=== PATIENT | female | born 1965 | race Two or more races ===

== ENCOUNTER 2018-12-16 06:58 | Day surgery (SDC) | payer OTHER ==
[~2018-12-16] VITALS: Ht 154.9 cm; Wt 113.3 kg
[2018-12-16] VITALS (11 sets, daily range): BP systolic 105–135; BP diastolic 53–68; PULSE 86–99; RESP 14–18; Ht 154.9 cm; Wt 113.3 kg
--- NOTE | 2018-12-16 07:08 | HPN ---
Date/Time of Note Date/Time of Note DATE: 12/16/18 TIME: 07:08 Interval H&P Admission Note Pt. seen H&P reviewed: No system changes MACIE MORGAN MD Dec 16, 2018 07:08
[2018-12-16] MEDS ORDERED: ATOR40TA68 PO (07:57)
[2018-12-16] MEDS ORDERED: AMLO-147 PO (07:57)
[2018-12-16] MEDS ORDERED: PIOG15TA12 PO (07:58)
[2018-12-16] MEDS ORDERED: INSU100I33 SC (07:58)
[2018-12-16] MEDS ORDERED: LEVO137T26 PO (07:59)
[2018-12-16] MEDS ORDERED: ASPI81TA52 PO (07:59)
[2018-12-16] MEDS ORDERED: ESCI20TA PO (08:00)
[2018-12-16] MEDS ORDERED: DOCU250C68 PO (08:00)
[2018-12-16] MEDS ORDERED: GABA300C16 PO (08:00)
[2018-12-16] MEDS ORDERED: INSU100I12 SQ (08:01)
[2018-12-16] MEDS ORDERED: RANI150T5 PO (08:01)
[2018-12-16] MEDS ORDERED: LACTATED RINGER'S 1,000 ML IV SCH (08:30)
--- NOTE | 2018-12-16 08:50 | PREAC ---
Date/Time of Note Date/Time of Note DATE: 12/16/18 TIME: 08:49 Anesthesia Eval and Record Evaluation Time Pre-Procedure Interview DATE: 12/16/18 TIME: 08:49 Age 53 Sex female NPO: 8 hrs Preoperative diagnosis Gallstones Planned procedure Lap Gloria Past Medical History Past Medical History: Includes Cardio: HTN, Dyslipidemia Endo: Diabetes Pulm: Sleep Apnea Musculoskeletal: Osteoarthritis GI: Morbid obesity Heme: Anemia Surgery & Anesthesia Issues No known issue Meds Anticoagulation: No Beta Shaji within 24 hr: No Reason Beta Shaji not given: Pt. not on B-Shaji Reported Medications Insulin Lispro (Humalog Kwikpen U-100) 100 Unit/1 Ml Insuln.pen, 25 UNIT SQ AC A, EA ADMELOG 12/16/18 Ranitidine Hcl* (Ranitidine Hcl*) 150 Mg Tablet, 150 MG PO Q12, #60 TAB 12/16/18 Gabapentin* (Gabapentin*) 300 Mg Capsule, 300 MG PO TID, #90 CAP 12/16/18 Escitalopram Oxalate* (Lexapro*) 20 Mg Tablet, 20 MG PO DAILY, #30 TAB 12/16/18 Docusate Sodium* (Dok*) 250 Mg Capsule, 250 MG PO DAILY, #30 CAP 12/16/18 Aspirin (Low Dose Aspirin) 81 Mg Tablet.dr, 81 MG PO DAILY, #30 TAB 12/16/18 Levothyroxine Sodium* (Levoxyl*) 137 Mcg Tablet, 137 MCG PO BEFORE BREAKFAST, #30 TAB 12/16/18 Pioglitazone Hcl* (Actos*) 15 Mg Tablet, 15 MG PO DAILY, #30 TAB 12/16/18 Insulin Glargine,Hum.rec.anlog (Basaglar Kwikpen U-100) 100 Unit/1 Ml Insuln.pen, 70 UNIT SC QHS, EA 12/16/18 Atorvastatin* (Atorvastatin*) 40 Mg Tablet, 40 MG PO QHS, #30 TAB 12/16/18 Amlodipine Besylate* (Amlodipine Besylate*) 10 Mg Tablet, 10 MG PO DAILY, #30 TAB 12/16/18 Current Medications Lactated Ringer's 1,000 ml @ 30 mls/hr Q24H IV ; Start 12/16/18 at 08:30 Meds reviewed: Yes Allergies Coded Allergies: No Known Allergy (Unverified , 12/16/18) Allergies Reviewed: Yes Labs/Studies Labs Reviewed: Reviewed by anesthesiologist test: Negative Studies: ECG Pre-procedure Exam Last vitals Vital Signs Date Temp Pulse Resp B/P (MAP) Pulse Ox O2 O2 Flow FiO2 Time Delivery Rate 12/16/18 97.4 97 16 132/67 98 08:19 (88) Airway: Adequate mouth opening, Adequate thyromental dist Mallampati: Mallampati II Teeth: Normal Lung: Normal Heart: Normal ASA Physical Status ASA physical status: 3 Emergency: None Planned Anesthetic General/MAC: ETT Nerve block: TAP (bilateral) Pre-operative Attestations Prior to commencing anesthesia and surgery, the patient was re-evaluated, there was verification of: *The patient's identity *The results of appropriate recent lab work and preoperative vital signs *The above evaluation not changing prior to induction *Anesthetic plan, risk benefits, alternative and complications discussed with patient/family; questions answered; patient/family understands, accepts and wishes to proceed. FADUMO POTTS Dec 16, 2018 08:50
[2018-12-16] MEDS ORDERED: ALBUTEROL 0.083% (NEB) 2.5 MG/3 ML AMP HHN PRN (09:00)
[2018-12-16] MEDS ORDERED: DIPHENHYDRAMINE 50 MG INJ IV PRN (09:00)
[2018-12-16] MEDS ORDERED: MEPERIDINE 25 MG INJ IV PRN (09:00)
[2018-12-16] MEDS ORDERED: FENTAnyl 50 MCG/ML VIAL IV PRN ×3 (09:00)
[2018-12-16] MEDS ORDERED: METOCLOPRAMIDE 10 MG INJ IV PRN (09:00)
[2018-12-16] MEDS ORDERED: HYDROmorphONE 1 MG/5 ML IV SYRINGE IV PRN ×3 (09:00)
[2018-12-16] MEDS ORDERED: ONDANSETRON 4 MG INJ IV PRN ×2 (09:00→10:30)
[2018-12-16] MEDS ORDERED: SUCCINYLCHOLINE CHLORIDE 100 MG/5 ML SYG IV ONE ×2 (09:13→09:38)
[2018-12-16] MEDS ORDERED: ROCURONIUM 50 MG INJ ONE (09:13)
[2018-12-16] MEDS ORDERED: ROPIVACAINE 0.5 % 30 ML VIAL ONE (09:13)
[2018-12-16] MEDS ORDERED: FENTAnyl 50 MCG/ML VIAL ONE (09:13)
[2018-12-16] MEDS ORDERED: BUPIVACAINE 0.25% (MPF) 30 ML INJ ONE (09:32)
[2018-12-16] MEDS ORDERED: CEFAZOLIN 1 GM INJ ONE (09:38)
[2018-12-16] MEDS ORDERED: PROPOFOL 20 ML ONE (09:38)
[2018-12-16] MEDS ORDERED: LIDOCAINE 100 MG SYRINGE ONE (09:38)
[2018-12-16] MEDS ORDERED: SUGAMMADEX SODIUM 200 MG/2 ML VIAL IV ONE (10:03)
--- NOTE | 2018-12-16 10:17 | OPR ---
Date/Time of Note Date/Time of Note DATE: 12/16/18 TIME: 10:12 Operative Report Procedure Date: Dec 16, 2018 Preoperative Diagnosis Gallstones without obstruction Postoperative Diagnosis 1. Gallstones without obstruction 2. Granulomatous liver masses(Benign. Pathology pending) Operation/Procedure Performed 1. Laparoscopic cholecystectomy 2. Laparoscopic liver biopsy Surgeon Feroz Morgan MD Table Games Floor Supervisor None Anesthesia Type: general Anesthesiologist: FADUMO POTTS Estimated Blood Loss: minimal Transfusion none Specimen 1. Gallbladder 2. Liver biopsy x2. One specimen for cultures and sensitivities Grafts/Implants none Tubes/Drains None Complications none Pt Condition Post Procedure: stable Disposition: PACU Indications Symptomatic cholelithiasis Procedure Description After satisfactory general endotracheal anesthesia was achieved, the abdomen was prepped and draped in the usual fashion. The abdomen was insufflated with carbon dioxide through an umbilical Veress needle to 15 mmHg pressure. The Veress needle was removed and the umbilical incision extended to 5 mm through which a 5 mm trocar was placed. A 5 mm 0 degree lens was placed. Laparoscopy showed an unremarkable uninflamed gallbladder. There were multiple 1 cm white nodules throughout the surface of the right and left lobes of the liver. The remainder of the laparoscopy showed no other abnormalities. Under direct visualization a 12 mm epigastric trocar was placed as well as 2 more 5 mm right lateral abdominal trochars. A 10 mm morcellator forcep was used to biopsy 1 of the 1 cm white masses in the right lobe edge of the liver. Frozen section would return benign granuloma. Another 10 mm biopsy was performed on another area of the right lobe of the liver for cultures and sensitivities. The biopsy sites were cauterized and hemostasis was total. Next to the dome of the gallbladder was grasped and retracted above the liver edge. The distal gallbladder was grasped and retracted inferolaterally. The hepatoduodenal ligament was carefully dissected between the gallbladder and well visualized common duct. The cystic duct was then triply hemoclipped and divided high at the junction of the gallbladder and the cystic duct. The cystic artery was identified immediately posteriorly. This was triply hemoclipped and divided between clips. The peritoneal attachments of the gallbladder was divided over a clip. The gallbladder was then dissected from below using electrocautery dissection and placed intact into an Endo Catch removed by the epigastric route. Hemostasis was total and irrigant returned clear. The abdomen was then desufflated and all trochars were removed. The fascia of the epigastrium was closed with a single suture of 0 Vicryl. The skin punctures were infiltrated with 30 cc of 0.25% plain Marcaine and closed with ruel. Sponge and needle counts were reported as correct x2. FEROZ MORGAN MD Dec 16, 2018 10:17
[2018-12-16] MEDS ORDERED: OXYCODONE/ACETAMINOPHEN (5/325) TAB PO PRN (10:30)
[2018-12-16] MEDS ORDERED: morphine 2 MG INJ IV PRN (10:30)
[2018-12-16] MEDS: OXYCODONE/ACETAMINOPHEN (5/325) TAB PO PRN ×2 (10:58→11:35)
--- NOTE | 2018-12-16 13:34 | PAC ---
Date/Time of Note Date/Time of Note DATE: 12/16/18 TIME: 13:34 Post-Anesthesia Notes Post-Anesthesia Note Last documented vital signs Vital Signs Date Temp Pulse Resp B/P (MAP) Pulse Ox O2 O2 Flow FiO2 Time Delivery Rate 12/16/18 96.1 88 18 116/55 94 11:10 (75) 12/16/18 Room Air 10:58 12/16/18 4.0 10:28 Activity: WNL Respiratory function: WNL Cardiovascular function: WNL Mental status: Baseline Pain reasonably controlled: Yes Hydration appropriate: Yes Nausea/Vomiting absent: Yes FADUMO POTTS Dec 16, 2018 13:34
== END 2018-12-16 12:11 | disposition home or self-care (01) ==
LOC: SDS 06:58 → EDBD 09:30 → EDSEX 09:30 → SDS 12:11
PROVIDERS: ATTEND Surgery
DX: K80.10 Calculus of gallbladder with chronic cholecystitis without obstruction (principal); K76.0 Fatty (change of) liver, not elsewhere classified; I10 Essential (primary) hypertension; E11.9 Type 2 diabetes mellitus without complications; Z79.82 Long term (current) use of aspirin; Z79.84 Long term (current) use of oral hypoglycemic drugs
CPT/HCPCS: 47379; 47562; 82962; 84703; 87070; 87075; 87102; 87116; 88304; 88307; 88312; 88331; J0690; J1170; J2001; J2795; J3010; Z7512; Z7610